=== PATIENT | female | born 1955 | race Caucasian/White ===

== ENCOUNTER 2019-05-18 08:46 | Emergency (ER) | payer MEDICARE, OTHER ==
[2019-05-18 09:52] LABS: STREP A SCREEN NEGATIVE (NEGATIVE)
[2019-05-18 10:01] LABS: INFLUENZA A NEGATIVE (NEGATIVE); INFLUENZA B NEGATIVE (NEGATIVE)
--- NOTE | 2019-05-18 10:11 | RADIOLOGY REPORT ---
EXAMINATION: Two View Chest Radiographs EXAM DATE: 05/18/2019 9:56 AM TECHNIQUE: Frontal and lateral views INDICATION: cough COMPARISON: 09/18/2012 CT chest 01/31/2019 ENCOUNTER: Not applicable FINDINGS: The cardia mediastinal silhouette is normal. Lungs are clear. No effusion or pneumothorax. IMPRESSION: No acute cardiopulmonary findings. Dictated by: Brooks Lacey MD on 05/18/2019 10:07 AM. .
--- NOTE | 2019-05-18 10:13 | Emergency Department Record ---
History of Present Illness - General Chief complaint: ENT Stated complaint: ENT Time Seen by Provider: 05/18/19 09:22 Source: Patient Mode of Arrival: Ambulatory Limitations: No limitations - History of Present Illness Initial comments: pt has been sick for a week with yellow productive cough, yellow/green rhinitis, sore throat, fever . MD complaint: Sore throat, Other Onset/Timin -: Week(s) Consistency: Constant Worsens with: Eating, Swallowing Associated Symptoms: Cough - Related Data Previous Rx's Medication Instructions Recorded Amoxicillin 500Mg Capsule [Amoxil] 500 mg PO TID #30 tab 05/18/19 Allergies Allergy/AdvReac Type Severity Reaction Status Date / Time naproxen Allergy Unknown Unverified 02/22/19 11:01 NSAIDS (Non-Steroidal Allergy Unknown Unverified 02/22/19 11:01 Anti-Inflamma Pyrazoles Allergy Unknown Unverified 02/22/19 11:01 Salicylates * Allergy Unknown Unverified 02/22/19 11:01 [Salicylates *RETIRED-12/15/15] Travel Screening - Travel/Exposure Within Last 30 Days Have you traveled within the last 30 days?: No - Travel/Exposure Within Last Year Have you traveled outside the [place] in the last year?: No - Additonal Travel Details Have you been exposed to anyone with a communicable illness?: No - Travel Symptoms Symptom Screening: None Review of Systems Reviewed: No additional complaints except as noted below Constitutional: Reports: As per HPI. Denies: Chills, Fever, Malaise, Night sweats, Weakness, Weight change Eyes: Reports: As per HPI. Denies: Eye discharge, Eye pain, Photophobia, Vision change ENT: Reports: As per HPI. Denies: Congestion, Dental pain, Ear pain, Epistaxis, Hearing loss, Throat pain Respiratory: Reports: As per HPI. Denies: Cough, Dyspnea, Hemoptysis, Stridor, Wheezes Cardiovascular: Reports: As per HPI. Denies: Arrhythmia, Chest pain, Dyspnea on exertion, Edema, Murmurs, Orthopnea, Palpitations, Paroxysmal nocturnal dyspnea, Rheumatic Fever, Syncope Endocrine: Reports: As per HPI. Denies: Fatigue, Heat or cold intolerance, Polydipsia, Polyuria Gastrointestinal: Reports: As per HPI. Denies: Abdominal pain, Constipation, Diarrhea, Hematemesis, Hematochezia, Melena, Nausea, Vomiting Genitourinary: Reports: As per HPI. Denies: Abnormal menses, Discharge, Dyspareunia, Dysuria, Frequency, Hematuria, Incontinence, Retention, Urgency Musculoskeletal: Reports: As per HPI. Denies: Arthralgia, Back pain, Gout, Joint swelling, Myalgia, Neck pain Skin: Reports: As per HPI. Denies: Bruising, Change in color, Change in hair/nails, Lesions, Pruritus, Rash Neurological: Reports: As per HPI. Denies: Abnormal gait, Confusion, Headache, Numbness, Paresthesias, Seizure, Tingling, Tremors, Vertigo, Weakness Psychiatric: Reports: As per HPI. Denies: Anxiety, Auditory hallucinations, Depression, Homicidal thoughts, Suicidal thoughts, Visual hallucinations Hematological/Lymphatic: Reports: As per HPI. Denies: Anemia, Blood Clots, Easy bleeding, Easy bruising, Swollen glands Past Medical History - SOCIAL HISTORY Smoking Status: Former smoker Alcohol Use: Rare Drug Use: None - RESPIRATORY Hx Respiratory Disorders: Yes Hx Bronchitis: Yes Hx COPD: Yes - CARDIOVASCULAR Hx Cardio Disorders: Yes Comment:: calification of aorta - NEURO Hx Neuro Disorders: Yes Hx Brain Tumor: Yes (front left current) - GI Hx GI Disorders: Yes Hx Crohn's Disease: Yes - Hx Genitourinary Disorders: Yes Hx Kidney Stones: Yes - ENDOCRINE Hx Endocrine Disorders: Yes Hx Diabetes: No Hx Thyroid Disease: Yes (thyroid tumor current) - MUSCULOSKELETAL Hx Musculoskeletal Disorders: Yes Hx Arthritis: Yes - PSYCH Hx Psych Problems: Yes Hx Anxiety: Yes Hx Depression: Yes - HEMATOLOGY/ONCOLOGY Hx Hematology/Oncology Disorders: No Family Medical History Any Significant Family History?: No Physical Exam - General General Appearance: Alert, Oriented x3, Cooperative, Mild distress - Head Head exam: Normal inspection - Eye Eye exam: Normal appearance, PERRL, EOMI Pupils: Normal accommodation - ENT ENT exam: Normal exam, Mucous membranes moist, Normal external ear exam, Normal orophraynx Ear exam: Normal external inspection. negative: External canal tenderness Nasal Exam: Normal inspection. negative: Discharge, Sinus tenderness Mouth exam: Normal external inspection, Tongue normal Teeth exam: Normal inspection. negative: Dental caries Throat exam: Tonsillar erythema. negative: Tonsillar exudate - Neck Neck exam: Normal inspection, Full ROM. negative: Tenderness - Respiratory Respiratory exam: Normal lung sounds bilaterally. negative: Respiratory distress - Cardiovascular Cardiovascular Exam: Regular rate, Normal rhythm, Normal heart sounds - GI/Abdominal GI/Abdominal exam: Soft, Normal bowel sounds. negative: Tenderness - Rectal Rectal exam: Deferred - exam: Deferred - Extremities Extremities exam: Normal inspection, Full ROM, Normal capillary refill. negative: Tenderness - Back Back exam: Reports: Normal inspection, Full ROM. Denies: Muscle spasm, Rash noted, Tenderness - Neurological Neurological exam: Alert, CN II-XII intact, Normal gait, Oriented X3 - Psychiatric Psychiatric exam: Normal affect, Normal mood - Skin Skin exam: Dry, Intact, Normal color, Warm Course Vital Signs 05/18/19 05/18/19 08:50 09:54 Temperature 97.6 F Pulse Rate 95 H Pulse Rate [ 95 H Right] Respiratory 16 18 Rate Blood Pressure 112/56 Blood Pressure 116/80 [Left Arm] Pulse Ox 99 99 Medical Decision Making - Lab Data Lab Results 05/18/19 Range/Units 09:40 Influenza Type A Ag Negative (NEGATIVE) Influenza Type B Ag Negative (NEGATIVE) Group A Strep Screen Negative (NEGATIVE) Disposition Disposition: Discharge Clinical Impression: Bronchitis Sinusitis Qualifiers: Sinusitis location: unspecified location Chronicity: acute Recurrence: non- recurrent Qualified Code(s): J01.90 - Acute sinusitis, unspecified Disposition: Home, Self-Care Condition: (1) Good Instructions: Acute Bronchitis (ED), Sinusitis (ED) Additional Instructions: follow up with family doctor. return sooner if worse. Prescriptions: Amoxicillin 500Mg Capsule [Amoxil] 500 mg PO TID #30 tab Forms: Patient Portal Access Quality - Quality Measures Quality Measures: Adult Bronchitis (18-64yr) - Adult Bronchitis Quality Measure: Measure #116: Avoidance of ABX w/Adult Bronchitis Is patient being admitted: No Avoidance of ABX w/Bronchitis: Medical Reason for prescribing ABX [[id number]] Medical Reason For Rx: Acute Pharyngitis, Acute sinusitus - Blood Pressure Screening Does Patient Have Any of the Following: No Blood Pressure Classification: Normal BP Reading Systolic Measurement: 112 Diastolic Measurement: 56 Screening for High Blood Pressure: < Normal BP, F/U Not Required > [G8783]
== END 2019-05-18 10:27 | disposition home or self-care (01) ==
LOC: ER 08:46
DX: J20.9 Acute bronchitis, unspecified (principal); J01.90 Acute sinusitis, unspecified; Z87.891 Personal history of nicotine dependence
CPT/HCPCS: 71046; 87400; 87880; 99283